=== PATIENT | female | born 1985 | race Caucasian/White ===

== ENCOUNTER → 2023-09-04 | Outpatient (CLI) | payer BC, OTHER ==
[~2023-09-04] MED LIST: PROHANCE 279.3MG/ML 15ML VIAL As Ordered ONE
== END ==
LOC: M RAD 15:23
PROVIDERS: ATTEND Plastic Surgery Surgery of the Hand
DX: Z98.82 Breast implant status (principal)
CPT/HCPCS: A9576; C8908

== ENCOUNTER 2024-02-18 13:24 | Observation (INO) | payer BC ==
[~2024-02-18] VITALS: Ht 162.6 cm; Wt 67.6 kg
[~2024-02-18 13:24] MED LIST changes: +CALC600T61 PO; +CVS-161 PO; +CYAN500T14 PO; +IRON27TA2 PO; +LEVO75TA4 PO; +LIDOCAINE 2% 100MG/5ML SDV (FOR ANES.) As Ordered ONE; +MIDAZOLAM INJ 2MG/2ML VIAL As Ordered ONE; +ONDANSETRON 4MG 2ML VIAL As Ordered ONE; -PROHANCE 279.3MG/ML 15ML VIAL As Ordered ONE; +ROCURONIUM BROMIDE 50MG/5ML VIAL As Ordered ONE; +SERT50TA29 PO; +THERTAB52 PO; +ceFAZolin SOD 2 GM in IV 1 EA IV ONE; +dexmedeTOMIDine (4MCG/ML)200MCG/50ML BTL (PRECEDEX) As Ordered ONE; +fentaNYL 250 MCG/5 ML INJECTION As Ordered ONE; +propofoL 200 MG/20 ML VIAL As Ordered ONE
[2024-02-18] MEDS ORDERED: LIDOCAINE 1% SDV 5ML VIAL SC PRN (13:25)
[2024-02-18] MEDS ORDERED: LR 1,000 ML IV SCH (13:25)
[2024-02-18] MEDS ORDERED: LACRILUBE (AKWA TEARS) OPHTH OINT 3.5GM As Ordered ONE (14:24)
[2024-02-18] MEDS ORDERED: ePHEDrine SULFATE 25 MG/5 ML(5MG/ML) SYRINGE As Ordered ONE (15:42)
[2024-02-18] MEDS ORDERED: SUGAMMADEX SODIUM 500 MG/5 ML VIAL (BRIDION) As Ordered ONE (15:57)
[2024-02-18] MEDS ORDERED: HYDROmorphone HCL 2MG/ML 1ML VIAL As Ordered ONE (16:02)
[2024-02-18] MEDS ORDERED: ACETAMINOPHEN 1000MG 100ML IV BAG As Ordered ONE (16:02)
[2024-02-18] MEDS: GENTAMICIN SULF 80MG/2ML VIAL As Ordered ONE (17:08)
[2024-02-18] MEDS ORDERED: fentaNYL 100 MCG/2 ML INJECTION IV PRN (17:30)
[2024-02-18] MEDS: LR 1,000 ML IV SCH ×2 (17:30→18:46)
[2024-02-18] MEDS ORDERED: ONDANSETRON 4MG 2ML VIAL IV PRN (17:30)
[2024-02-18] MEDS ORDERED: ACETAMINOPHEN TAB 650MG DOSE (2X325MG) PO PRN (17:50)
[2024-02-18] MEDS: oxyCODONE 5MG TAB PO PRN (17:55)
[2024-02-18] MEDS: HYDROMORPHONE HCL 0.5 MG/ 0.5 ML SYRINGE IV PRN (17:55)
[2024-02-18 18:47] VITALS: BP 90/67; TEMP 97.5; O2SAT 97
[2024-02-18 19:23] VITALS: BP 100/69; TEMP 98.2; O2SAT 95
[2024-02-18 20:30] VITALS: BP 103/68; TEMP 97.5; O2SAT 95
[2024-02-18] MEDS: ONDANSETRON 4MG 2ML VIAL IV PRN (21:01)
[2024-02-18 21:30] VITALS: BP 98/55; TEMP 97.3; O2SAT 95
[2024-02-18] MEDS: ceFAZolin SOD 1 GM in D5W MINI-BAG PLUS 50 ML IV SCH (22:10)
[2024-02-18 22:30] VITALS: BP 97/54; TEMP 97.5; O2SAT 96
[2024-02-18 23:30] VITALS: BP 96/54; TEMP 97.5; O2SAT 95
[2024-02-18] MEDS: traMADol 50 MG TAB PO PRN (23:51)
[2024-02-19 03:30] VITALS: BP 98/55; TEMP 97.5; O2SAT 94
[2024-02-19] MEDS: PERCOCET 5MG/325MG TAB PO PRN (06:19)
[2024-02-19] MEDS ORDERED: PERCOCET PO (10:10)
== END 2024-02-19 12:55 | disposition home or self-care (01) ==
LOC: M SDC 13:24 → M RR INP 13:25 → M MS5PR 18:25
PROVIDERS: ADMIT Plastic Surgery Surgery of the Hand; ATTEND Plastic Surgery Surgery of the Hand
DX: T85.44XA Capsular contracture of breast implant, initial encounter (principal); N64.82 Hypoplasia of breast; Z98.84 Bariatric surgery status; G47.33 Obstructive sleep apnea (adult) (pediatric); Z79.899 Other long term (current) drug therapy
CPT/HCPCS: 19342; 19370; 81025; 88300; 88302; 96365; 96366; 96375; C9290; J0131; J0665; J0690; J1100; J1170; J1580; J2250; J2405; J3010; L8600

== ENCOUNTER 2024-10-06 09:50 | Observation (INO) | payer SELFPAY ==
[~2024-10-06] VITALS: Ht 162.6 cm; Wt 67.0 kg
[~2024-10-06 09:50] MED LIST changes: -LIDOCAINE 2% 100MG/5ML SDV (FOR ANES.) As Ordered ONE; -MIDAZOLAM INJ 2MG/2ML VIAL As Ordered ONE; +OMEP-173 PO; -ONDANSETRON 4MG 2ML VIAL As Ordered ONE; +PERCOCET PO; -ROCURONIUM BROMIDE 50MG/5ML VIAL As Ordered ONE; -ceFAZolin SOD 2 GM in IV 1 EA IV ONE; -dexmedeTOMIDine (4MCG/ML)200MCG/50ML BTL (PRECEDEX) As Ordered ONE; -fentaNYL 250 MCG/5 ML INJECTION As Ordered ONE; -propofoL 200 MG/20 ML VIAL As Ordered ONE
[2024-10-06] MEDS ORDERED: NS 1,000 ML IV SCH (10:35)
[2024-10-06] MEDS ORDERED: ROCURONIUM BROMIDE 50MG/5ML VIAL As Ordered ONE (10:40)
[2024-10-06] MEDS ORDERED: propofoL 200 MG/20 ML VIAL As Ordered ONE (10:40)
[2024-10-06] MEDS ORDERED: fentaNYL 250 MCG/5 ML INJECTION As Ordered ONE (10:40)
[2024-10-06] MEDS ORDERED: LIDOCAINE 2% 100MG/5ML SDV (FOR ANES.) As Ordered ONE (10:40)
[2024-10-06] MEDS ORDERED: MIDAZOLAM INJ 2MG/2ML VIAL As Ordered ONE (10:40)
[2024-10-06] MEDS ORDERED: ONDANSETRON 4MG 2ML VIAL As Ordered ONE (10:40)
[2024-10-06] MEDS ORDERED: HOME MED LIST COMPLETE! XX SCH (11:25)
[2024-10-06] MEDS ORDERED: dexmedeTOMIDine (4MCG/ML)200MCG/50ML BTL (PRECEDEX) As Ordered ONE (11:31)
[2024-10-06] MEDS: HEPARIN SOD (PORCINE) 5000UNITS/ML 1ML VIAL/SYRINGE SQ ONE (12:38)
[2024-10-06] MEDS ORDERED: PHENYLephrine 500MCG 5ML (100MCG/ML) SYRINGE As Ordered ONE (12:40)
[2024-10-06] MEDS: ceFAZolin SOD 2 GM in IV 1 EA IV ONE (12:43)
[2024-10-06] MEDS ORDERED: ACETAMINOPHEN 1000MG 100ML IV BAG As Ordered ONE (13:11)
[2024-10-06] MEDS ORDERED: METOCLOPRAMIDE INJ 10MG/2ML VIAL As Ordered ONE (13:30)
[2024-10-06] MEDS ORDERED: SUGAMMADEX SODIUM 500 MG/5 ML VIAL (BRIDION) As Ordered ONE (13:30)
[2024-10-06] MEDS ORDERED: HYDROmorphone HCL 2MG/ML 1ML VIAL As Ordered ONE (13:31)
[2024-10-06] MEDS: GENTAMICIN SULF 80MG/2ML VIAL As Ordered ONE (14:32)
[2024-10-06] MEDS: LIDOCAINE 1% MDV 20ML VIAL As Ordered ONE (14:33)
[2024-10-06] MEDS: EPINEPHrine INJ 1 MG/ML 1ML AMP As Ordered ONE (14:33)
[2024-10-06] MEDS: NS 1,000 ML IV SCH (15:15)
[2024-10-06] MEDS ORDERED: ONDANSETRON 4MG 2ML VIAL IV PRN (15:15)
[2024-10-06] MEDS ORDERED: fentaNYL 100 MCG/2 ML INJECTION IV PRN (15:15)
[2024-10-06] MEDS: oxyCODONE 5MG TAB PO PRN (16:17)
[2024-10-06] MEDS: HYDROMORPHONE HCL 0.5 MG/ 0.5 ML SYRINGE IV PRN (16:19)
[2024-10-06] MEDS: LR 1,000 ML IV SCH (16:20)
[2024-10-06 17:00] VITALS: BP 119/68; TEMP 97.7; O2SAT 92
[2024-10-06 17:30] VITALS: BP 100/60; TEMP 97.7; O2SAT 92
[2024-10-06 18:30] VITALS: BP 101/60; TEMP 97.9; O2SAT 93
[2024-10-06 19:30] VITALS: BP 105/59; TEMP 97.7; O2SAT 94
[2024-10-06] MEDS: traMADol 50 MG TAB PO PRN (20:02)
[2024-10-06] MEDS: ceFAZolin SOD 2 GM in IV 1 EA IV SCH (20:17)
[2024-10-06 20:30] VITALS: BP 125/80; TEMP 97.7; O2SAT 94
[2024-10-06 21:30] VITALS: BP 130/73; TEMP 97.5; O2SAT 93
[2024-10-07] MEDS: PERCOCET 5MG/325MG TAB PO PRN (00:51)
[2024-10-07 04:00] VITALS: BP 97/58; TEMP 97.2; O2SAT 94
[2024-10-07] MEDS: ONDANSETRON 4MG 2ML VIAL IV PRN (04:50)
[2024-10-07] MEDS: LEVOTHYROXINE 75MCG TABLET (0.075MG) PO SCH (05:23)
[2024-10-07 06:34] VITALS: BP 101/58; O2SAT 94
[2024-10-07 08:00] VITALS: BP 113/65; TEMP 98.1; O2SAT 93
[2024-10-07] MEDS: SERTRALINE HCL 50 MG TAB PO SCH (08:14)
[2024-10-07] MEDS: CYANOCOBALAMIN 500 MCG TAB PO SCH (08:14)
[2024-10-07] MEDS: OMEPRAZOLE 20MG CAP PO SCH (08:14)
[2024-10-07 09:18] LABS: HEMATOCRIT 28.5 % (36.0-47.0); HEMOGLOBIN 9.1 g/dl (12.0-15.5); MEAN CORPUSCULAR HEMOGLOBIN 29.4 pg (27.0-33.0); MEAN CORPUSCULAR HGB CONC 31.9 g/dl (32.0-36.5); MEAN CORPUSCULAR VOLUME 91.9 fl (80.0-96.0); PLATELET COUNT, AUTOMATED 209 10^3/uL (150-450); WHITE BLOOD COUNT 9.8 10^3/uL (4.0-10.0)
[2024-10-07] MEDS ORDERED: TRAM50TA2 PO (10:11)
[2024-10-07 12:00] VITALS: BP 110/64; TEMP 98.1; O2SAT 96
[2024-10-07] MEDS: ACETAMINOPHEN 325 MG TAB PO PRN (14:01)
[2024-10-07] MEDS: FLUZONE VACCINE TRIVALENT PF(2024-25) 0.5ML SYRINGE IM.IMMUN ONE (14:05)
== END 2024-10-07 16:30 | disposition home or self-care (01) ==
LOC: M SDC 09:50 → M RR INP 09:51 → M MS5PR 16:50
PROVIDERS: ADMIT Plastic Surgery Surgery of the Hand; ATTEND Plastic Surgery Surgery of the Hand
DX: M79.3 Panniculitis, unspecified (principal); L98.7 Excessive and redundant skin and subcutaneous tissue; M62.08 Separation of muscle (nontraumatic), other site; E03.9 Hypothyroidism, unspecified; K21.9 Gastro-esophageal reflux disease without esophagitis; Z79.899 Other long term (current) drug therapy; Z98.84 Bariatric surgery status
CPT/HCPCS: 15830; 15847; 36415; 81025; 85027; 88300; 90656; 96361; 96365; 96366; 96375; 96376; C9290; G0008; J0131; J0171; J0665; J0690; J1100; J1171; J1580; J2250; J2371; J2405; J2765; J3010